=== PATIENT | female | born 1990 | race Asian ===

== ENCOUNTER 2018-04-05 12:31 | Outpatient (CLI) | payer OTHER ==
--- NOTE | 2018-04-07 23:18 | EKG ---
Test Reason : Blood Pressure : / mmHG Vent. Rate : 080 BPM Atrial Rate : 080 BPM P-R Int : 126 ms QRS Dur : 084 ms QT Int : 368 ms P-R-T Axes : 055 050 026 degrees QTc Int : 424 ms Normal sinus rhythm Normal ECG No previous ECGs available Confirmed by Tobias MOSQUEDA ([id number]) on 04/07/2018 11:17:59 PM Referred By: KRISTEN Confirmed By:Tobias MOSQUEDA
== END 2018-04-05 12:32 | disposition home or self-care (01) ==
LOC: EKG 12:31
PROVIDERS: ATTEND Obstetrics & Gynecology
DX: R00.0 Tachycardia, unspecified (principal)
CPT/HCPCS: 93005; 93010

== ENCOUNTER 2018-07-29 12:32 | Day surgery (SDC) | payer OTHER ==
[2018-07-29 13:12] VITALS: BP 113/61; TEMP 98.1; BMI 29.8
[2018-07-29 13:44] LABS: Hemoglobin 12.7 g/dL (12.0-16.0); Mean Corpuscular HGB CONC 33.8 g/dL (32.0-36.0); Mean Corpuscular Hemoglobin 28.5 pg (27.0-31.0); Mean Corpuscular Volume 84.1 fL (78.0-98.0); Mean Platelet Volume 8.4 fL (7.4-10.4); Platelet Count 216 thou/uL (130-400); RBC Distribution Width 12.4 % (11.5-14.5); Red Blood Cell (RBC) Count 4.47 mill/uL (4.20-5.40)
[2018-07-29] MEDS ORDERED: Lactated Ringer's 1,000 ML IV SCH (13:45)
[2018-07-29] MEDS ORDERED: Terbutaline Sulfate 1 MG/ML VIAL ONE (13:50)
[2018-07-29] MEDS ORDERED: Mineral Oil PER 1 ML TOP SCH (14:25)
--- NOTE | 2018-07-29 14:31 | PDOC.LDHP ---
Labor and Delivery H&P Chief complaint: other (ECV) HPI: 27 yo @ 37w1d by 10 week CRL who presents for ECV. Antepartum course otherwise benign. Due date: 08/18/18 Dating criteria: first trimester ultrasound Grav: 2 Para: 1 OB History Details: 1 term Current complications: none Abnormal US findings: No Past Medical History: Denies Current medications: pre- vitamins Previous surgical history: none Allergies/Adverse Reactions: Allergies Allergy/AdvReac Type Severity Reaction Status Date / Time No Known Allergies Allergy Verified 07/29/18 13:14 Social history: none - Physical Exam Vital signs reviewed and normal: yes General: NAD Heart: RRR Lungs: nonlabored breathing Abdomen: other (ECV attempted with preprocedure terbulatine and under sono guidance. Unsuccessful after attempt at foreward and backward attempt. FHTs 140s after attempt. Both mother and baby in stable condition.) Extremeties: no edema FHT: category 1 [place] contractions every: rare ctx on monitor - Vaginal Exam cm dilated: 1 (Lv breech ) Effacement: 0% Station: -3 - OB Labs Blood type: O RH: positive Antibody Screen: negative HIV: negative RPR: negative HEPSAg: negative 1 hour GCT: positive 3 hour GTT: wnl GBS: negative Urine drug screen: not done Rubella: immune - Assessment 37w1d IUP Lv breech - Plan -: R/B/A/I reviewed for ECV with pt. Verbalized understanding. ECV attempted, however, unsuccessful. Will continue to monitor after ECV attempt and plan for d /c home with f/u scheduled and PLTCS @ 39 weeks.
[2018-07-29] MEDS ORDERED: Terbutaline Sulfate 1 MG/ML VIAL SC SCH (15:30)
== END 2018-07-29 15:50 | disposition home or self-care (01) ==
LOC: L&D/OP 12:32
PROVIDERS: ATTEND Obstetrics & Gynecology
DX: O32.1XX0 Maternal care for breech presentation, not applicable or unspecified (principal); Z3A.37 37 weeks gestation of pregnancy
CPT/HCPCS: 59412; 76815; 85027; 86850; 86900; 86901; 96360; 96361; 99282; J3105

== ENCOUNTER 2018-08-14 05:47 | Inpatient (IN) | payer MEDICAID, OTHER, SELFPAY ==
--- NOTE | 2018-08-13 11:35 | PDOC.LDHP ---
Labor and Delivery H&P Chief complaint: scheduled section HPI: 28 yo @ 39w3d by LMP c/w 10 week CRL who presents for scheduled PLTCS due to lv breech presentation. Pt underwent failed attempted ECV @ 37 weeks, otherwise antepartum course has been benign. Current gestational age (weeks): 39 Due date: 08/18/18 Dating criteria: last menstrual period Grav: 2 Para: 1 OB History Details: 1 TSVD Current complications: breech Abnormal US findings: No Past Medical History: Denies Current medications: pre-ramona vitamins Previous surgical history: none Allergies/Adverse Reactions: Allergies Allergy/AdvReac Type Severity Reaction Status Date / Time No Known Allergies Allergy Verified 08/14/18 06:10 Social history: none - Physical Exam Vital signs reviewed and normal: yes General: NAD Heart: RRR Lungs: nonlabored breathing Abdomen: gravid Extremeties: no edema FHT: category 1 (140s, mod river, +accels, no decels) [place] contractions every: q8+ min - OB Labs Blood type: O RH: positive Antibody Screen: negative HIV: negative RPR: negative HEPSAg: negative 1 hour GCT: positive 3 hour GTT: wnl GBS: negative Urine drug screen: not done Rubella: immune - Assessment 39w3d IUP Lv breech presentation - Plan Plan: to OR for section, informed consent obtained, anesthesia consult for pain management
[2018-08-14] MEDS ORDERED: Bicitra 30 ML UDCUP PO SCH (05:56)
[2018-08-14] MEDS ORDERED: Promethazine HCl 25 MG/ML VIAL IM PRN (05:56)
[2018-08-14] MEDS ORDERED: Acetaminophen 500 MG TAB PO PRN (05:56)
[2018-08-14] MEDS ORDERED: Ondansetron PF 4 MG/2 ML Vial IVP PRN (05:56)
[2018-08-14] MEDS ORDERED: CEFAZOLIN 2 GM/50 ML BAG IVPB SCH (06:15)
[2018-08-14 06:20] VITALS: BMI 29.8
[2018-08-14] MEDS: Lactated Ringer's 1,000 ML IV SCH ×2 (06:33→14:05)
[2018-08-14 06:54] LABS: Hemoglobin 13.4 g/dL (12.0-16.0); Mean Corpuscular HGB CONC 33.9 g/dL (32.0-36.0); Mean Corpuscular Hemoglobin 28.5 pg (27.0-31.0); Mean Corpuscular Volume 84.2 fL (78.0-98.0); Mean Platelet Volume 8.6 fL (7.4-10.4); Platelet Count 243 thou/uL (130-400); RBC Distribution Width 12.4 % (11.5-14.5); Red Blood Cell (RBC) Count 4.71 mill/uL (4.20-5.40); White Blood Cell (WBC) Count 9.7 thou/uL (4.8-10.8)
[2018-08-14] MEDS ORDERED: Ketorolac Tromethamine 30 MG/ML VIAL ONE (07:20)
[2018-08-14] MEDS ORDERED: Oxytocin 10 UNITS/ML VIAL ONE (07:20)
[2018-08-14] MEDS ORDERED: PHENYLEPHRINE-NS 100 MCG/ML 10 ML SYRINGE ONE (07:20)
[2018-08-14] MEDS ORDERED: Ondansetron PF 4 MG/2 ML Vial ONE (07:20)
[2018-08-14] MEDS ORDERED: ePHEDrine/0.9% NaCl/PF SYRINGE 50 mg/10 ml ONE (07:20)
[2018-08-14] MEDS ORDERED: Morphine PF 1 MG/ML SYR ONE (07:25)
[2018-08-14 07:36] LABS: HIV (1/2) Antibody/Antigen Non-Reactive (NonReactive); Hep B Surf Ag Non-Reactive S/CO (NonReactive); Syphilis Antibody Nonreactive (Nonreactive); Syphilis Antibody Index 0.05 S/CO (<1.00 Non-Reactive)
[2018-08-14] MEDS ORDERED: Eucerin (Mineral Oil/Petrolatum,White) 30 gm Jar TOP PRN (08:37)
[2018-08-14] MEDS ORDERED: Ondansetron HCl/PF 4 MG/2 ML Vial IVP PRN (08:37)
[2018-08-14] MEDS ORDERED: Naloxone HCl 0.4 mg/ml Vial IV PRN (08:37)
[2018-08-14] MEDS ORDERED: Meperidine HCl/PF 25 MG/ML VIAL SLOW IVP PRN (08:37)
[2018-08-14] MEDS ORDERED: HYDROmorphone 2 MG/ML VIAL SLOW IVP PRN (08:37)
[2018-08-14] MEDS ORDERED: Promethazine HCl 25 MG SUPP PR PRN (08:37)
[2018-08-14] MEDS ORDERED: L&D-Morphine 4 MG/ML VIAL SLOW IVP PRN (08:37)
[2018-08-14] MEDS ORDERED: Naloxone HCl 0.4 mg/ml Vial IVP PRN ×2 (08:37)
--- NOTE | 2018-08-14 08:40 | PDOC.OPDEL ---
OB Operative/Delivery Note Delivery Dr/Surgeon: Rae Marr DO Assist: Alexey Pearl MD Pre-Delivery Diagnosis: scheduled section Procedure/Post Delivery Dx: primary low transverse CS Weeks gestation: 39 Anesthesia: spinal - Findings A Sex: male Weight: 8 lb 7 oz - 1 min: 8 - 5 min: 9 - Additional Findings/Plan Placenta delivered: spontaneous findings: low transverse hysterotomy without extension, normal uterus Estimated blood loss: QBL 451 mL Compilations/Other Findings: Infant in jorge a breech presentation Clear Amniotic fluid Normal appearing placenta Dictation # [id number] Post delivery plan: routine recovery
[2018-08-14] MEDS ORDERED: Communication Order-Pharmacy FS SCH (08:45)
[2018-08-14] MEDS ORDERED: Ketorolac Tromethamine 30 MG/ML VIAL IVP SCH (08:45)
[2018-08-14] MEDS ORDERED: NS / Oxytocin 40 units/1000ml 1,000 ML ONE (09:08)
[2018-08-14] MEDS ORDERED: NS / Oxytocin 40 units/1000ml 1,000 ML IV SCH (09:14)
[2018-08-14] MEDS ORDERED: Misoprostol 200 MCG TAB PR PRN (10:53)
[2018-08-14] MEDS ORDERED: Zolpidem Tartrate 5 MG TAB PO PRN (10:53)
[2018-08-14] MEDS ORDERED: Bisacodyl 10 MG SUPP PR PRN (10:53)
[2018-08-14] MEDS ORDERED: Methylergonovine 0.2 MG/ML VIAL IM PRN (10:53)
[2018-08-14] MEDS ORDERED: diphenhydrAMINE 25 MG CAP PO PRN (10:53)
[2018-08-14] MEDS ORDERED: Lanolin Ointment 7 GM TUBE TOP PRN (10:53)
[2018-08-14] MEDS: diphenhydrAMINE 50 MG/ML VIAL IVP PRN ×2 (11:16→16:41)
--- NOTE | 2018-08-14 12:48 | OP ---
DATE OF PROCEDURE: 08/14/2018 PREOPERATIVE DIAGNOSES: 1. A 39-week and 3 days intrauterine . 2. malpresentation in jorge a breech position. POSTOPERATIVE DIAGNOSES: 1. A 39-week and 3 days intrauterine . 2. malpresentation in jorge a breech position. PROCEDURE PERFORMED: Primary low-transverse delivery via Pfannenstiel skin incision. SURGEON: Rae Marr DO ANALYTICAL STRATEGIST: Alexey Pearl MD QUANTITATIVE BLOOD LOSS: 451 mL IV FLUIDS: 1500 mL. URINARY OUTPUT: 100 mL of clear urine. FINDINGS: Normal-appearing uterus. Clear amniotic fluid. Infant in jorge a breech presentation. Normal-appearing placenta. INDICATIONS FOR PROCEDURE: Ms. Joseluis Momin is a 28-year-old G2, P1 at 39- weeks and 3 days, who presents for a scheduled primary delivery due to jorge a breech presentation. She had undergone attempted external cephalic version at 37 weeks which was unsuccessful and was counseled regarding a primary delivery. DESCRIPTION OF PROCEDURE: The patient was brought to the operating room. She has had spinal anesthesia placed. She was placed in supine position with leftward tilt. A Baltazar catheter was placed. She was given 2 g of Ancef for surgical prophylaxis. She was prepped and draped in a sterile fashion. An official time-out was performed. The anesthesia was assessed and proven to be adequate. A Pfannenstiel incision was made using the scalpel and this was carried down through the underlying fascia layer in the midline. The fascia was then incised in the midline using the scalpel and extended bilaterally using Hoff scissors. The superior aspect of the fascial incision was grasped using Jose Armando clamp, extended upward, and dissected free from underlying rectus abdominis muscles and the same was performed in the inferior aspect of the fascial incision. The rectus abdominis muscles were bluntly. The peritoneum was then entered bluntly and extended using blunt dissection. Guero O retractor was then placed in the abdomen. A low- transverse hysterotomy was made using the scalpel. The hysterotomy was extended using blunt dissection. Amniotic membranes were ruptured during the process of the hysterotomy. The infant's sacrum was then brought up to the hysterotomy. The fundal pressure was applied and infant was then fully delivered, first delivering the legs by applying pressure in the popliteal fossa and then was delivered with appeals assistant pressure up to the level of the scapulas. The arms were then delivered, first the anterior arm sweeping and then the posterior arm. The was then placed in the green towel and then the head was delivered atraumatically, maintaining flexion throughout the process. The infant's cord was then clamped and cut. The was handed to the awaiting Neonatology Team. The cord blood was obtained. The placenta was delivered spontaneously. The uterus was cleared off all clot and debris. The hysterotomy was closed in a running locking fashion using 0 Monocryl. The pelvis was irrigated and cleared of all clot and debris. The Guero O retractor was removed from the abdomen. The peritoneum was closed in a running fashion. The rectus abdominis muscles were evaluated and hemostatic. The fascia was closed in a running fashion using 0 PDS. Subcutaneous layer was irrigated and hemostatic. The subcutaneous layer was closed using 3-0 Vicryl and the skin was closed using 4-0 Monocryl and Dermabond. The patient tolerated the procedure well. There were no complications. Mother and will be transferred to routine recovery. Job ID: [id number] [facility]
[2018-08-14] MEDS ORDERED: Prenatal Vitamin 1 TAB PO SCH (13:45)
[2018-08-14] MEDS ORDERED: Ibuprofen 800 MG TAB PO SCH (14:00)
[2018-08-14] MEDS: Ketorolac Tromethamine 30 MG/ML VIAL IVP PRN (18:20)
[2018-08-15] MEDS ORDERED: Sodium Chloride 0.9% 10 ML ONE ×2 (00:18→06:23)
[2018-08-15] MEDS: Ketorolac Tromethamine 30 MG/ML VIAL IVP PRN ×2 (00:27→06:28)
[2018-08-15] MEDS: Lactated Ringer's 1,000 ML IV SCH ×4 (03:28→21:14)
[2018-08-15] MEDS: Simethicone Chewable 80 MG TAB PO PRN ×2 (06:29→18:39)
[2018-08-15 06:38] LABS: #Eosinphils 0.1 thou/uL (0.0-0.7); #Lymphocytes 1.7 thou/uL (1.20-3.40); #Monocytes 0.5 thou/uL (0.11-0.59); #Neutrophils 8.1 thou/uL (1.40-6.50); %Eosinophils 1.1 % (0.0-10.0); %Lymphocytes 16.2 % (21.0-51.0); %Monocytes 5.1 % (0.0-10.0); %Neutrophils 77.6 % (42.0-75.0); Hemoglobin 11.8 g/dL (12.0-16.0); Mean Corpuscular HGB CONC 33.4 g/dL (32.0-36.0); Mean Corpuscular Hemoglobin 28.7 pg (27.0-31.0); Mean Corpuscular Volume 85.8 fL (78.0-98.0); Mean Platelet Volume 8.3 fL (7.4-10.4); Platelet Count 211 thou/uL (130-400); RBC Distribution Width 12.6 % (11.5-14.5); White Blood Cell (WBC) Count 10.5 thou/uL (4.8-10.8)
--- NOTE | 2018-08-15 08:12 | PDOC.PP ---
Post Progress Note Post Day #: 1 Subjective: Doing well. Breast feeding. Moderate lochia. Pain controlled. PO intake tolerated: yes Flatus: yes Ambulation: yes Vital Signs (12 hours) Temp Pulse Resp BP Pulse Ox 08/15/18 04:45 97.9 F 78 20 112/79 08/15/18 00:27 98.2 F 83 18 113/71 95 08/14/18 21:10 16 95 08/14/18 20:45 98.3 F 84 16 118/65 92 L Weight Weight 174 lb - Physical Examination General: NAD Cardiovascular: RRR Respiratory: non-labored breathing Abdominal: no distention, appropriately TTP Fundus firm & at: below umbilicus Extremities: negative homans (B) Deviation from normal: dressing c/d/i, remove today. Neurological: no gross focal deficits Psychiatric: A&Ox3, normal affect Result Diagrams: 08/15/18 06:16 Additional Labs: Post Labs Blood Type O POSITIVE 08/14/18 06:35 Hep Bs Antigen Non-Reactive S/CO (NonReactive) 08/14/18 06:35 (1) delivery delivered Code(s): O82 - ENCOUNTER FOR DELIVERY WITHOUT INDICATION Status: Acute - Assessment/Plan PPD1 VSSAF Continue post operative/ care Plan for D/C home tomorrow.
[2018-08-15] MEDS: Prenatal Vitamin 1 TAB PO SCH (09:58)
[2018-08-15] MEDS: HYDROcodone/Acetaminophen 5/325 mg Tablet PO PRN ×3 (09:59→18:38)
[2018-08-15] MEDS: Ibuprofen 800 MG TAB PO SCH ×2 (14:32→21:12)
[2018-08-16] MEDS: HYDROcodone/Acetaminophen 5/325 mg Tablet PO PRN ×4 (00:21→17:49)
[2018-08-16] MEDS: Simethicone Chewable 80 MG TAB PO PRN ×2 (04:27→17:49)
[2018-08-16] MEDS: Lactated Ringer's 1,000 ML IV SCH ×3 (05:06→22:45)
[2018-08-16] MEDS: Ibuprofen 800 MG TAB PO SCH ×3 (06:00→21:49)
--- NOTE | 2018-08-16 08:37 | PDOC.PP ---
Post Progress Note Post Day #: 2 Subjective: Doing well. Pain controlled. Moderate lochia. Breast feeding. receiving phototherapy. PO intake tolerated: yes Flatus: yes Ambulation: yes Vital Signs (12 hours) Temp Pulse Resp BP Pulse Ox 08/16/18 08:05 97.7 F 77 20 110/66 97 08/16/18 00:21 97.8 F 97 20 103/57 L 08/15/18 20:48 98.1 F 92 20 115/64 97 Weight Weight 174 lb - Physical Examination General: NAD Cardiovascular: RRR Respiratory: non-labored breathing Abdominal: no distention, appropriately TTP Fundus firm & at: below umbilicus Extremities: negative homans (B) Skin: CS incision dry & intact Neurological: no gross focal deficits Psychiatric: A&Ox3, normal affect Result Diagrams: 08/15/18 06:16 Additional Labs: Post Labs Blood Type O POSITIVE 08/14/18 06:35 Hep Bs Antigen Non-Reactive S/CO (NonReactive) 08/14/18 06:35 (1) delivery delivered Code(s): O82 - ENCOUNTER FOR DELIVERY WITHOUT INDICATION Status: Acute - Assessment/Plan PPD2 VSSAF Continue post care. Plan for d/c home tomorrow due to infant receiving phototherapy and per pt request.
[2018-08-16] MEDS: Prenatal Vitamin 1 TAB PO SCH (08:41)
[2018-08-17] MEDS: HYDROcodone/Acetaminophen 5/325 mg Tablet PO PRN ×3 (03:30→20:38)
[2018-08-17] MEDS: Simethicone Chewable 80 MG TAB PO PRN ×2 (03:49→09:57)
--- NOTE | 2018-08-17 08:45 | PRG ---
DATE OF SERVICE: 08/17/2018 POSTOPERATIVE NOTE PRIMARY OB: Dr. Rae Marr. SUBJECTIVE: The patient is a 28-year-old female, postop day 3 status post a primary for breech presentation. The patient is reporting today that she is having difficulty with her pain control on the medications that she has been receiving. Otherwise, she is tolerating p.o., voiding on her own, having decreased lochia. OBJECTIVE: VITAL SIGNS: This morning, blood pressure 112/68, saturating 94% to 97% on room air, temperature 97.9, pulse of 77, and respiratory rate of 20. GENERAL: She appears to be in no acute distress. She is alert and oriented, cooperative and pleasant to interact with. ABDOMEN: Fundus is tender to palpation. Incision is clean, dry, and intact. EXTREMITIES: Nontender with symmetrical edema. ASSESSMENT AND PLAN: The patient is a 28-year-old, postop day 3 status post a primary section with difficulty controlling her pain given the medications she has received. I have reviewed the MAR, and it appears that she has frequently received only one tablet of hydrocodone. I have removed that option, and the patient will be receiving 2 tablets p.r.n. every 4 hours as needed with ibuprofen for additional pain control. In hopes that she will have good pain control with p.o. medications, can anticipate discharge tomorrow. Her baby continues to require phototherapy light as well. Job ID: [id number]
[2018-08-17] MEDS: Prenatal Vitamin 1 TAB PO SCH (09:57)
--- NOTE | 2018-08-17 14:06 | PDOC.EVN ---
Event Note - Event Note Event Note: Pain well controlled. Wants to go home. VSS AF Baby has been discharged. Plan: DC home with precautions, [place] called in from office per note in chart. F /U with Dr. Marr in 2 weeks.
[2018-08-17] MEDS: Lactated Ringer's 1,000 ML IV SCH ×2 (14:15→20:29)
[2018-08-17] MEDS: Ibuprofen 800 MG TAB PO SCH ×2 (14:15→20:29)
[2018-08-17 21:09] VITALS: BP 127/74; TEMP 98.1
== END 2018-08-17 21:30 | disposition home or self-care (01) | DRG 788 ==
LOC: L&D 05:47 → 3SW 10:55
PROVIDERS: ADMIT Obstetrics & Gynecology; ATTEND Obstetrics & Gynecology
PROC: 10D00Z1 Extraction of Products of Conception, Low, Open Approach (ICD-10-PCS; principal; 2018-08-14)
DX: O32.1XX0 Maternal care for breech presentation, not applicable or unspecified (principal); Z3A.39 39 weeks gestation of pregnancy; Z37.0 Single live birth
CPT/HCPCS: 36415; 51702; 76815; 85025; 85027; 86780; 86850; 86900; 86901; 87340; 87389; J1200; J1885; J2274; J2405; J2550; J2590